=== PATIENT | female | born 1985 | race Caucasian/White ===

== ENCOUNTER 2022-05-10 09:46 | Emergency (ER) | payer OTHER, SELFPAY ==
--- NOTE | 2022-05-10 09:48 | CT_ITS ---
INDICATION: trauma EXAMINATION: CT BRAIN - CT Head or Brain W/O Contrast Injection TECHNIQUE: Multiple axial images were obtained of the head without intravenous contrast. A radiation dose optimization technique was used for this scan. IV Contrast dosage and agent: None. COMPARISON: None. FINDINGS: BRAIN PARENCHYMA: No intra- or extra-axial hemorrhage. No evidence of acute infarct. No intracranial mass or mass effect. There is preservation of the padgett/white matter interface. Posterior fossa structures are unremarkable. CSF SPACES: Appropriate for age. No hydrocephalus. Basal cisterns are patent. CALVARIUM, SKULL BASE, PARANASAL SINUSES AND MASTOID AIR CELLS: Clear. No discrete lytic or blastic abnormalities. ORBITS: Both globes, extraocular muscles, optic nerves and retrobulbar fat appear unremarkable. ASPECTS Score for Acute Strokes: 10 CT/Brain/Head without Contrast IMPRESSION: Negative Brain CT without contrast. Electronically Signed: Truong Ortega MD at 11:06 EDT ,
[2022-05-10 09:49] VITALS: BP 124/89; PULSE 79; RESP 18; TEMP 36.5; O2SAT 99
[2022-05-10 09:50] VITALS: BP 124/89; PULSE 85; RESP 16; TEMP 36.5; O2SAT 97; O2SAT 98; BMI 22.8
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
[2022-05-10] MEDS: Ondansetron 4 MG/2 ML Vial IV (10:06)
[2022-05-10] MEDS: Morphine 4 MG/ML Syringe IV (10:06)
[2022-05-10 10:19] VITALS: BP 114/79; PULSE 76; RESP 18; O2SAT 98
--- NOTE | 2022-05-10 10:34 | RAD_ITS ---
INDICATION: trauma EXAMINATION/TECHNIQUE: X-RAY - RIGHT XR Wrist Min 3 Views 4 VIEWS COMPARISON: None. FINDINGS: SOFT TISSUES: Soft tissue swelling visualized surrounding the wrist joint, no abnormal density visualized in the soft tissues. No radiopaque foreign body. BONES/JOINTS: No acute fracture or subluxation.. Normal alignment. Preservation of the joint space.. No sclerotic or destructive changes observed. RAD/Wrist min 3 Views IMPRESSION: Soft tissue swelling, no evidence of acute osseous abnormality. Electronically Signed: Truong Ortega MD at 11:07 EDT ,
[2022-05-10 11:39] VITALS: BP 112/91; PULSE 74; RESP 16; O2SAT 95
[2022-05-10] MEDS: oxyCODONE 5 MG Tablet PO (11:41)
== END 2022-05-10 11:44 | disposition home or self-care (01) ==
PROVIDERS: Emergency Provider Emergency Medicine; Visit Provider Emergency Medicine
DX: S06.0X9A Concussion with loss of consciousness of unspecified duration, initial encounter (principal); S60.211A Contusion of right wrist, initial encounter; S80.212A Abrasion, left knee, initial encounter; V17.4XXA Pedal cycle driver injured in collision with fixed or stationary object in traffic accident, initial encounter; Y93.55 Activity, bike riding
CPT/HCPCS: 70450; 73110; 96374; 96375; 99285; A4216; J2405